=== PATIENT | female | born 1980 | race Two or more races ===

== ENCOUNTER 2022-07-17 09:15 | Emergency (ER) | payer OTHER, SELFPAY ==
[2022-07-17 09:26] VITALS: BP 131/86; PULSE 77; RESP 18; TEMP 36; O2SAT 100; BMI 30.7
--- NOTE | 2022-07-17 09:51 | ED.BACK ---
HPI - Back Pain/Injury General Chief Complaint: Back Pain/Injury Stated Complaint: back pain Time Seen by Provider: 07/17/22 09:39 Source: patient Mode of arrival: ambulatory History of Present Illness HPI Narrative: 42-year-old female with no significant past medical history presenting to the ED complaining of right-sided low back pain radiating down right lower extremity x2 days. Admits woke up with the pain, has had similar symptoms in the past from prior injury years ago. Denies recent injury/trauma or fall, numbness, tingling, weakness, urine incontinence/retention, hematuria MD elicited complaint: back pain Pertinent past history: prior back pain Related Data Previous Rx's Medication Instructions Recorded acetaminophen 500 mg tablet 500 mg PO Q6H PRN fever or pain 07/17/22 (Tylenol Extra Strength) #14 tabs cyclobenzaprine 5 mg tablet 5 mg PO Q8H PRN pain (scale score 07/17/22 7-10) 5 days #14 tabs lidocaine 5 % topical patch 1 patch topical DAILY PRN pain #30 07/17/22 (Lidoderm) ea naproxen 500 mg tablet 500 mg PO BID PRN pain 10 days #20 07/17/22 tabs Allergies Allergy/AdvReac Type Severity Reaction Status Date / Time No Known Allergies Allergy Verified 07/17/22 09:25 Review of Systems Review of Systems: Constitutional: No Fever, No Chills ENT/Mouth: No Ear Pain, No Nasal Congestion, No sore throat, No Rhinorrhea, No Swallowing Difficulty Cardiovascular: No Chest Pain, No SOB Respiratory: No Cough, No Sputum, No Wheezing Gastrointestinal: No Nausea, No Vomiting, No Diarrhea, No Constipation, No Abdominal pain Genitourinary: No Dysuria, No Urinary Frequency, No Hematuria, No Urinary Incontinence/retention, No Urgency, No Flank Pain Musculoskeletal: + joint pain, No Myalgias, No Joint Swelling Skin: No Skin Lesions, No rash Neuro: No Weakness, No Numbness, No Paresthesias Yes all other systems are reviewed and are negative Constitutional: Constitutional: Reports as per [facility] Past Medical History Attestation statement: The following information was validated with the patient. Social History Social History Advance Directives: No Advance Directives Information Provided: No Physical Exam Vital Signs: Vital Signs: Last Vital Signs Temp 96.8 F 07/17/22 09:26 Pulse 77 07/17/22 09:26 Resp 18 07/17/22 09:26 BP 131/86 07/17/22 09:26 Pulse Ox 100 07/17/22 09:26 O2 Del Method 07/17/22 09:26 BMI result Body Mass Index 30.7 Const: General: cooperative, healthy appearing, no acute distress, alert and awake Orientation/consciousness: patient oriented x3 Limitations: no limitations HEENT: Head: Yes normal to inspection and Yes atraumatic Ears: hearing grossly normal bilaterally General nose exam: Normal external nose present Face and sinus: Yes normal facial exam Eyes: General: appearance normal, both eyes and all related structures EOM: EOMs intact bilaterally Neck: Neck: Yes normal visual inspection and Yes no meningeal signs Resp: Effort & Inspection: normal respiratory effort and no respiratory distress Cardio: Rate: regular rate Heart sounds: S1 normal heart sound present and S2 normal heart sound present Peripheral pulses: Peripheral pulses 2+ throughout GI: Inspection: Yes normal to inspection Palpation (GI): Soft to palpation, nontender, no guarding and not rigid : General: Yes no CVA tenderness Back/Spine/Pelvis: Other: No midline thoracic/lumbar spinous tenderness/step-off or deformity. + mild right-sided lower lumbar MSK tenderness to palpation Back: no CVA tenderness Cervical Spine: normal cervical lordosis Thoracic/Lumbar Spine: thoracic and lumbar spine normal to inspection Skin: Rashes: no rashes Wounds: no wounds Neuro: Other: Strength intact throughout. No saddle anesthesia. Sensation intact to light touch. Neurovascular intact distally General: patient oriented x3, gait normal, tone normal, moves all extremities, no meningeal signs and no focal motor deficits Gait exam (Neuro): Normal gait present Extrem: General: Yes normal to inspection Medications Administered Discontinued Medications Generic Name Dose Route Start Last Admin Trade Name Freq PRN Reason Stop Dose Admin Cyclobenzaprine HCl 5 mg 07/17/22 09:50 07/17/22 10:01 Cyclobenzaprine Hcl 5 Mg Tablet PO 07/17/22 09:51 5 mg ONCE ONE Administration Ketorolac Tromethamine 30 mg 07/17/22 09:50 07/17/22 10:00 Ketorolac Tromethamine 30 Mg/Ml Vial IM 07/17/22 09:51 30 mg ONCE ONE Administration Lidocaine 1 patch 07/17/22 09:50 07/17/22 10:01 Lidocaine 4 % Patch Adh..Patch TRANSDERMA 07/17/22 09:51 1 patch ONCE ONE Administration Protocol Medical Decision Making Medical Decision Making [facility] Narrative: 42-year-old female with no significant past medical history presenting to the ED complaining of right-sided low back pain radiating down right lower extremity x2 days. On exam vital signs stable, NAD, nontoxic appearing, no midline spinous tenderness throughout red flag symptoms. Concern for as he pain/strain and sciatica. Low suspicion for cauda quinine, cord compression, fracture, epidural abscess Plan: Pain Control, PCP follow-up Differential Diagnosis Differential Diagnoses: The differential diagnosis associated with the presentation includes as above Discharge Plan Discharge Clinical Impression: Lumbar radiculopathy Patient Disposition: Home, Self-Care Instructions: Lumbar Radiculopathy (ED) Additional Instructions: Your pain is likely musculoskeletal Flexeril is a muscle relaxer, take at night as it makes you drowsy, do not drive, drink alcohol, or operate machinery while taking it Naproxen as an anti-inflammatory / pain medication, take with food Lidoderm patches are numbing patches, apply to painful area In addition take Tylenol at home If symptoms persist or worsen, pain becomes unbearable, you developed urinary retention or incontinence, or weakness return to the ED Prescriptions: New acetaminophen [Tylenol Extra Strength] 500 mg tablet 500 mg PO Q6H PRN (Reason: fever or pain) Qty: 14 0RF lidocaine [Lidoderm] 5 % adhesive patch,medicated 1 patch topical DAILY MDD remove after 12 hours PRN (Reason: pain) Qty: 30 0RF Rx Instructions: leave on most painful area for up to 12 hrs naproxen 500 mg tablet 500 mg PO BID PRN (Reason: pain) 10 Days Qty: 20 0RF cyclobenzaprine 5 mg tablet 5 mg PO Q8H PRN (Reason: pain (scale score 7-10)) 5 Days Qty: 14 0RF Referrals: Opal Warren [Primary Care Provider] - 3 days Interventions: ED Discharge Assessment Last Done: 07/17/22 10:09 Discharge Date/Time: 07/17/22 10:10
[2022-07-17] MEDS: Ketorolac Tromethamine 30 MG/ML VIAL IM (10:00)
[2022-07-17] MEDS: Lidocaine 4 % Patch ADH..PATCH 1 PATCH TRANSDERMA (10:01)
[2022-07-17] MEDS: Cyclobenzaprine HCl 5 MG TABLET PO (10:01)
== END 2022-07-17 10:10 | disposition home or self-care (01) ==
PROVIDERS: Emergency Provider Emergency Medicine Emergency Medical Services; PCP Internal Medicine
DX: M54.16 Radiculopathy, lumbar region (principal)
CPT/HCPCS: 96372; 99283; 99284; J1885

== ENCOUNTER 2022-12-12 11:01 | Emergency (ER) | payer OTHER, SELFPAY ==
--- NOTE | ~2022-12-12 | XR_ITS ---
EXAMINATION: THORACIC SPINE, LUMBAR SPINE, RIGHT SHOULDER, SACRUM AND COCCYX. CLINICAL INFORMATION: Low back pain following fall COMPARISON: None. TECHNIQUE: Three-view lumbar spine. Three-view thoracic spine. Five-view sacrum and coccyx. 3 view right shoulder. FINDINGS: Right shoulder: There is no evidence of acute fracture or dislocation of the right shoulder. Glenohumeral joint appears unremarkable. There is no widening of the cortical clavicular space. There is mild spurring about the acromioclavicular space. Thoracic spine: There is mild scoliosis of the thoracic spine convex left superiorly and convex right inferiorly. No acute fracture is appreciated. Disc spaces are maintained. Pedicles intact. No abnormal paraspinal line bulge is identified. Lumbar spine: There are 5 nonrib bearing lumbar vertebra. No acute fracture, spondylolisthesis, or spondylolysis is identified. Pedicles appear intact. There is degenerative disc disease present with some disc space narrowing and minor spurring at the L3-L4 and L5-S1 levels. Sacrum and coccyx. No diastases of the pelvis is identified. The sacroiliac joints and pubic symphysis appear unremarkable. No acute sacral bone fracture is appreciated. No coccyx fracture is noted. XR/XR lumbar spine 2-3V IMPRESSION: No evidence of acute fracture involving the right shoulder, thoracic spine, lumbar spine, or sacrum and coccyx. Mild thoracic spine scoliosis. Lumbar spondylosis at the L3-L4 and L5-S1 levels.
--- NOTE | ~2022-12-12 | XR_ITS ---
EXAMINATION: THORACIC SPINE, LUMBAR SPINE, RIGHT SHOULDER, SACRUM AND COCCYX. CLINICAL INFORMATION: Low back pain following fall COMPARISON: None. TECHNIQUE: Three-view lumbar spine. Three-view thoracic spine. Five-view sacrum and coccyx. 3 view right shoulder. FINDINGS: Right shoulder: There is no evidence of acute fracture or dislocation of the right shoulder. Glenohumeral joint appears unremarkable. There is no widening of the cortical clavicular space. There is mild spurring about the acromioclavicular space. Thoracic spine: There is mild scoliosis of the thoracic spine convex left superiorly and convex right inferiorly. No acute fracture is appreciated. Disc spaces are maintained. Pedicles intact. No abnormal paraspinal line bulge is identified. Lumbar spine: There are 5 nonrib bearing lumbar vertebra. No acute fracture, spondylolisthesis, or spondylolysis is identified. Pedicles appear intact. There is degenerative disc disease present with some disc space narrowing and minor spurring at the L3-L4 and L5-S1 levels. Sacrum and coccyx. No diastases of the pelvis is identified. The sacroiliac joints and pubic symphysis appear unremarkable. No acute sacral bone fracture is appreciated. No coccyx fracture is noted. XR/XR shoulder RT min 2V IMPRESSION: No evidence of acute fracture involving the right shoulder, thoracic spine, lumbar spine, or sacrum and coccyx. Mild thoracic spine scoliosis. Lumbar spondylosis at the L3-L4 and L5-S1 levels.
--- NOTE | ~2022-12-12 | XR_ITS ---
EXAMINATION: THORACIC SPINE, LUMBAR SPINE, RIGHT SHOULDER, SACRUM AND COCCYX. CLINICAL INFORMATION: Low back pain following fall COMPARISON: None. TECHNIQUE: Three-view lumbar spine. Three-view thoracic spine. Five-view sacrum and coccyx. 3 view right shoulder. FINDINGS: Right shoulder: There is no evidence of acute fracture or dislocation of the right shoulder. Glenohumeral joint appears unremarkable. There is no widening of the cortical clavicular space. There is mild spurring about the acromioclavicular space. Thoracic spine: There is mild scoliosis of the thoracic spine convex left superiorly and convex right inferiorly. No acute fracture is appreciated. Disc spaces are maintained. Pedicles intact. No abnormal paraspinal line bulge is identified. Lumbar spine: There are 5 nonrib bearing lumbar vertebra. No acute fracture, spondylolisthesis, or spondylolysis is identified. Pedicles appear intact. There is degenerative disc disease present with some disc space narrowing and minor spurring at the L3-L4 and L5-S1 levels. Sacrum and coccyx. No diastases of the pelvis is identified. The sacroiliac joints and pubic symphysis appear unremarkable. No acute sacral bone fracture is appreciated. No coccyx fracture is noted. XR/XR thoracic spine 3V IMPRESSION: No evidence of acute fracture involving the right shoulder, thoracic spine, lumbar spine, or sacrum and coccyx. Mild thoracic spine scoliosis. Lumbar spondylosis at the L3-L4 and L5-S1 levels.
--- NOTE | ~2022-12-12 | XR_ITS ---
EXAMINATION: THORACIC SPINE, LUMBAR SPINE, RIGHT SHOULDER, SACRUM AND COCCYX. CLINICAL INFORMATION: Low back pain following fall COMPARISON: None. TECHNIQUE: Three-view lumbar spine. Three-view thoracic spine. Five-view sacrum and coccyx. 3 view right shoulder. FINDINGS: Right shoulder: There is no evidence of acute fracture or dislocation of the right shoulder. Glenohumeral joint appears unremarkable. There is no widening of the cortical clavicular space. There is mild spurring about the acromioclavicular space. Thoracic spine: There is mild scoliosis of the thoracic spine convex left superiorly and convex right inferiorly. No acute fracture is appreciated. Disc spaces are maintained. Pedicles intact. No abnormal paraspinal line bulge is identified. Lumbar spine: There are 5 nonrib bearing lumbar vertebra. No acute fracture, spondylolisthesis, or spondylolysis is identified. Pedicles appear intact. There is degenerative disc disease present with some disc space narrowing and minor spurring at the L3-L4 and L5-S1 levels. Sacrum and coccyx. No diastases of the pelvis is identified. The sacroiliac joints and pubic symphysis appear unremarkable. No acute sacral bone fracture is appreciated. No coccyx fracture is noted. XR/XR sacrum coccyx min 2V IMPRESSION: No evidence of acute fracture involving the right shoulder, thoracic spine, lumbar spine, or sacrum and coccyx. Mild thoracic spine scoliosis. Lumbar spondylosis at the L3-L4 and L5-S1 levels.
[2022-12-12 11:13] VITALS: BP 114/69; PULSE 93; RESP 20; TEMP 36.4; O2SAT 100; BMI 29.3
--- NOTE | 2022-12-12 11:17 | ED_ITS ---
HPI - General Adult General Chief complaint: Back Pain/Injury Stated complaint: Fall 6/ back pain Time Seen by Provider: 12/12/22 11:31 Source: patient, RN notes reviewed and old records reviewed Mode of arrival: ambulatory History of Present Illness HPI narrative: 42-year-old female with no significant past medical history presenting to the ED complaining of right shoulder and low back pain s/p fall down about 10 stairs 2 days ago. Denies symptoms prior to fall, head trauma, or LOC. Denies taking anticoagulation. Denies urinary incontinence/retention, numbness/tingling, weakness. Has been taking Tylenol and Motrin without relief Onset (ago): day(s) Related Data Previous Rx's Medication Instructions Recorded acetaminophen 500 mg tablet 500 mg PO Q6H PRN fever or pain 07/17/22 (Tylenol Extra Strength) #14 tabs cyclobenzaprine 5 mg tablet 5 mg PO Q8H PRN pain (scale score 07/17/22 7-10) 5 days #14 tabs lidocaine 5 % topical patch 1 patch topical DAILY PRN pain #30 07/17/22 (Lidoderm) ea naproxen 500 mg tablet 500 mg PO BID PRN pain 10 days #20 07/17/22 tabs acetaminophen 500 mg tablet 500 mg PO Q6H PRN fever or pain 12/12/22 (Tylenol Extra Strength) #14 tabs cyclobenzaprine 5 mg tablet 5 mg PO Q8H PRN pain (scale score 12/12/22 7-10) 5 days #14 tabs lidocaine 5 % topical patch 1 patch topical DAILY PRN pain #30 12/12/22 (Lidoderm) ea naproxen 500 mg tablet 500 mg PO BID PRN pain 10 days #20 12/12/22 tabs tramadol 50 mg tablet 50 mg PO Q8H PRN pain, severe #9 12/12/22 tabs Allergies Allergy/AdvReac Type Severity Reaction Status Date / Time No Known Allergies Allergy Verified 07/17/22 09:25 Review of Systems Review of Systems: Constitutional: No Fever, No Chills ENT/Mouth: No Ear Pain, No Nasal Congestion, No sore throat, No Rhinorrhea, No Swallowing Difficulty Cardiovascular: No Chest Pain, No SOB Respiratory: No Cough, No Sputum Gastrointestinal: No Nausea, No Vomiting, No Diarrhea, No Constipation, No Abdominal pain Genitourinary: No Dysuria, No Urinary Frequency, No Hematuria, No Urinary Incontinence/retention, No Urgency, No Flank Pain Musculoskeletal: +joint pain, + Myalgias, No Joint Swelling Skin: No Skin Lesions, No rash Neuro: No Weakness, No Numbness, No Paresthesias Yes all other systems are reviewed and are negative Constitutional: Constitutional: Reports as per HPI Neurologic: Denies Sensory deficit (Neuro) COUNT INCLUDES THE [facility] Past Medical History Attestation statement: The following information was validated with the patient. Source: old records reviewed Social History Social History Advance Directives: No Advance Directives Information Provided: Yes Physical Exam ED Vital Signs: Vital Signs - 24 hr 12/12/22 11:13 Temperature 97.5 F Pulse Rate 93 Respiratory Rate 20 Blood Pressure 114/69 Pulse Oximetry 100 Oxygen Delivery Method Room Air BMI result Body Mass Index 29.3 Const General: cooperative, healthy appearing and no acute distress Orientation/consciousness: patient oriented x3 Limitations: no limitations HENMT Head: Yes normal to inspection and Yes atraumatic Ears: hearing grossly normal bilaterally General nose exam: Normal external nose present Face and sinus: Yes normal facial exam Eyes General: appearance normal, both eyes and all related structures EOM: EOMs intact bilaterally Neck Neck: Yes normal visual inspection and Yes no meningeal signs Resp Effort & Inspection: normal respiratory effort and no respiratory distress Cardio Rate: regular rate Heart sounds: S1 normal heart sound present and S2 normal heart sound present GI Inspection: Yes normal to inspection Palpation (GI): Soft to palpation, nontender, no guarding and not rigid General: Yes no CVA tenderness Back/Spine/Pelvis Other: No midline cervical/thoracic/lumbar spinous tenderness/step-off or deformity. + bilateral lumbar MSK tenderness to palpation. Back: no CVA tenderness Skin Rashes: no rashes Wounds: no wounds Neuro Other: Strength intact throughout. No saddle anesthesia. Sensation intact to light touch. Neurovascular intact distally General: patient oriented x3, gait normal, tone normal, moves all extremities, no meningeal signs and no focal motor deficits Gait exam (Neuro): Normal gait present Motor exam (neuro): 5/5 motor strength present throughout Sensory Exam: No Sensory deficit (Neuro) Extrem Other: Right shoulder with mild tenderness. No appreciable deformity. Limited a bduction secondary to pain. Neurovascular intact distally General: Yes normal to inspection Course Course Course Narrative: RME: fall unto back on tuesday and right shoulder. no head strike or LOC. Xrays of back and shoulder ordered. XR thoracic spine 3V/XR lumbar spine 2-3V/XR sacrum coccyx min 2V/XR shoulder RT min 2V IMPRESSION: No evidence of acute fracture involving the right shoulder, thoracic spine, lumbar spine, or sacrum and coccyx. ? Mild thoracic spine scoliosis. ? Lumbar spondylosis at the L3-L4 and L5-S1 levels. > patient reports mild symptomatic improvement after medications given in the ED. Results discussed with patient including worrisome signs and symptoms and strict return precautions, and when to return to the emergency department. They verbalized understanding and feel safe for discharge at this time. Medications Administered Discontinued Medications Generic Name Dose Route Start Last Admin Trade Name Freq PRN Reason Stop Dose Admin Cyclobenzaprine HCl 10 mg 12/12/22 11:38 12/12/22 12:04 Cyclobenzaprine Hcl 10 Mg Tablet PO 12/12/22 11:39 10 mg ONCE ONE Administration Ketorolac Tromethamine 30 mg 12/12/22 11:38 12/12/22 12:03 Ketorolac Tromethamine 30 Mg/Ml Vial IM 12/12/22 11:39 30 mg ONCE ONE Administration Lidocaine 1 patch 12/12/22 11:39 12/12/22 12:03 Lidocaine 4 % Patch Adh..Patch TRANSDERMA 12/12/22 11:40 1 patch ONCE ONE Administration Protocol Tramadol HCl 50 mg 12/12/22 12:46 12/12/22 12:50 Tramadol Hcl 50 Mg Tablet PO 12/12/22 12:47 50 mg ONCE ONE Administration Medical Decision Making Medical Decision Making [facility] Narrative: 42-year-old female with no significant past medical history presenting to the ED complaining of right shoulder and low back pain s/p fall down about 10 stairs 2 days ago. On exam vital signs stable, NAD, appears uncomfortable, no midline spinous tenderness throughout or red flag symptoms. MSK lumbar tenderness reproducible and right shoulder tenderness. No saddle anesthesia, ambulating with steady gait. Concern for MSK pain/strain and spasming. Rule out fracture. Low suspicion for cauda equina, cord compression, epidural abscess, or shoulder dislocation Plan: X-rays, pain control Please refer to course for remaining clinical decision making, interpretation of labs/imaging results, and discussions with consultants and/or family members. Differential Diagnosis Differential Diagnoses: The differential diagnosis associated with the presentation includes As above Admission/Observation Consideration of admission/observation: Escalation of care including admission/observation considered Lab Data MDM Lab Attestation statement: I reviewed the patient's lab results. Radiology Impression Discussion of test interpretation with radiology: I have reviewed the radiologist's reading. External Record Review External record reviewed: Inpatient record, Office record, Outpatient record, Prior outpatient labs, Prior outpatient radiology, Primary care record and Outside ED record Tests considered The following testing was considered but not selected: As above Discharge Plan Discharge Clinical Impression: Strain of lumbar region, Acute shoulder pain Patient Disposition: Home, Self-Care Instructions: Acute Low Back Pain (ED), Shoulder Pain (ED) Additional Instructions: Your pain is likely musculoskeletal Flexeril is a muscle relaxer, take at night as it makes you drowsy, do not drive, drink alcohol, or operate machinery while taking it Naproxen as an anti-inflammatory / pain medication, take with food Lidoderm patches are numbing patches, apply to painful area Tramadol as an opiate pain medication, take only when pain is severe for the next 3 days In addition take Tylenol at home If symptoms persist or worsen, pain becomes unbearable, you developed urinary retention or incontinence, or weakness return to the ED Es probable que lama dolor sea musculoesquel?sylvia Flexeril es un relajante muscular, t?cody por la noche ya que te adormece, no conduzcas, bebas alcohol ni operes maquinaria mientras lo hever. Naproxeno collette medicamento antiinflamatorio/analg?sico, t?wisdom con alimentos Los parches de Lidoderm son parches anest?sicos, se aplican en el ?von dolorida Tramadol collette analg?sico opi?shower doors and panels fabricator, t?wisdom solo cuando el dolor sea intenso garrick los pr?ximos 3 d?as Adem?s helio Tylenol en casa Si los s?ntomas persisten o empeoran, el dolor se vuelve insoportable, desarroll? retenci?n urinaria o incontinencia, o debilidad, regrese al servicio de urgencias. Prescriptions: New tramadol 50 mg tablet 50 mg PO Q8H PRN (Reason: pain, severe) Qty: 9 0RF acetaminophen [Tylenol Extra Strength] 500 mg tablet 500 mg PO Q6H PRN (Reason: fever or pain) Qty: 14 0RF lidocaine [Lidoderm] 5 % adhesive patch,medicated 1 patch topical DAILY MDD remove after 12 hours PRN (Reason: pain) Qty: 30 0RF Rx Instructions: leave on most painful area for up to 12 hrs naproxen 500 mg tablet 500 mg PO BID PRN (Reason: pain) 10 Days Qty: 20 0RF cyclobenzaprine 5 mg tablet 5 mg PO Q8H PRN (Reason: pain (scale score 7-10)) 5 Days Qty: 14 0RF No Action acetaminophen [Tylenol Extra Strength] 500 mg tablet 500 mg PO Q6H PRN (Reason: fever or pain) Qty: 14 0RF lidocaine [Lidoderm] 5 % adhesive patch,medicated 1 patch topical DAILY MDD remove after 12 hours PRN (Reason: pain) Qty: 30 0RF Rx Instructions: leave on most painful area for up to 12 hrs naproxen 500 mg tablet 500 mg PO BID PRN (Reason: pain) 10 Days Qty: 20 0RF cyclobenzaprine 5 mg tablet 5 mg PO Q8H PRN (Reason: pain (scale score 7-10)) 5 Days Qty: 14 0RF Referrals: Opal Warren [Primary Care Provider] - 5 days Stand Alone Forms: Work/School Release Interventions: ED Discharge Assessment Last Done: 12/12/22 13:56 Discharge Date/Time: 12/12/22 13:59 Print Language: Cuban
[2022-12-12] MEDS: Lidocaine 4 % Patch ADH..PATCH 1 PATCH TRANSDERMA (12:03)
[2022-12-12] MEDS: Ketorolac Tromethamine 30 MG/ML VIAL IM (12:03)
[2022-12-12] MEDS: Cyclobenzaprine HCl 10 MG TABLET PO (12:04)
--- NOTE | 2022-12-12 12:10 | PC.NURSE ---
patient medicated per SEP. warm blanket given.
[2022-12-12] MEDS: traMADoL HCL 50 MG TABLET PO (12:50)
--- NOTE | 2022-12-12 12:51 | PC.NURSE ---
patient medicated per SEP. Patient in no apparent distress. reports pain 10/
== END 2022-12-12 13:59 | disposition home or self-care (01) ==
PROVIDERS: Emergency Provider Internal Medicine; PCP Internal Medicine
DX: S39.012A Strain of muscle, fascia and tendon of lower back, initial encounter (principal); M25.511 Pain in right shoulder; M54.6 Pain in thoracic spine; W10.9XXA Fall (on) (from) unspecified stairs and steps, initial encounter; Y93.9 Activity, unspecified; Y92.9 Unspecified place or not applicable; Y99.9 Unspecified external cause status; Z79.899 Other long term (current) drug therapy
CPT/HCPCS: 72072; 72100; 72220; 73030; 96372; 99283; 99284; J1885

== ENCOUNTER 2022-12-25 20:36 | Emergency (ER) | payer OTHER, SELFPAY ==
--- NOTE | ~2022-12-25 | XR_ITS ---
EXAMINATION: XR THORACIC SPINE 2V, XR LUMBAR SPINE 2-3V CLINICAL INFORMATION: Reason for Exam pain, fall COMPARISON: None. TECHNIQUE: 3 views of the thoracic spine and 3 views of the lumbar spine FINDINGS: No acute fracture or traumatic malalignment. Vertebral body heights maintained. Mild S-shaped thoracic scoliosis, apex left at T5, apex right at T9. Small endplate ossified is throughout the thoracic inlet or spine. Moderate loss of disc space height at L3-L4 and L5-S1. Paraspinal soft tissues unremarkable. Moderate constipation. XR/XR thoracic spine 2V IMPRESSION: * No acute fracture or traumatic malalignment. * Thoracolumbar spondylosis and scoliosis as described.
--- NOTE | ~2022-12-25 | XR_ITS ---
EXAMINATION: XR THORACIC SPINE 2V, XR LUMBAR SPINE 2-3V CLINICAL INFORMATION: Reason for Exam pain, fall COMPARISON: None. TECHNIQUE: 3 views of the thoracic spine and 3 views of the lumbar spine FINDINGS: No acute fracture or traumatic malalignment. Vertebral body heights maintained. Mild S-shaped thoracic scoliosis, apex left at T5, apex right at T9. Small endplate ossified is throughout the thoracic inlet or spine. Moderate loss of disc space height at L3-L4 and L5-S1. Paraspinal soft tissues unremarkable. Moderate constipation. XR/XR lumbar spine 2-3V IMPRESSION: * No acute fracture or traumatic malalignment. * Thoracolumbar spondylosis and scoliosis as described.
[2022-12-25 20:37] VITALS: BP 96/54; PULSE 90; RESP 18; TEMP 36.6; O2SAT 100; BMI 24.4
--- NOTE | 2022-12-25 23:27 | ED_ITS ---
HPI - Back Pain/Injury General Chief Complaint: Back Pain/Injury Stated Complaint: back pain Time Seen by Provider: 12/25/22 23:10 Source: patient Mode of arrival: ambulatory Limitations: no limitations History of Present Illness HPI Narrative: 42-year-old female who presents emergency department for evaluation of lower back pain. The patient was seen in the emergency department on 12/12/2022 after having a fall down stairs. At that time she had x-rays of her lumbar sacral spine which revealed no acute fractures. She was discharged home with tramadol, naproxen, Flexeril and lidocaine patches. Patient states that her pain completely resolved. She did not do anything strenuous yesterday or have any new injuries. She woke up this morning with lower back pain right greater than left. She describes the pain is a constant, burning sensation which is worse with movement. The pain does radiate down both legs to her knees. She denies any numbness or weakness of her lower extremities. She denied loss of bowel or bladder control. She took tramadol Flexeril with no relief for pain. She denied systemic symptoms such as fever, chills, weakness or fatigue. Related Data Previous Rx's Medication Instructions Recorded acetaminophen 500 mg tablet 500 mg PO Q6H PRN fever or pain 07/17/22 (Tylenol Extra Strength) #14 tabs cyclobenzaprine 5 mg tablet 5 mg PO Q8H PRN pain (scale score 07/17/22 7-10) 5 days #14 tabs lidocaine 5 % topical patch 1 patch topical DAILY PRN pain #30 07/17/22 (Lidoderm) ea naproxen 500 mg tablet 500 mg PO BID PRN pain 10 days #20 07/17/22 tabs acetaminophen 500 mg tablet 500 mg PO Q6H PRN fever or pain 12/12/22 (Tylenol Extra Strength) #14 tabs cyclobenzaprine 5 mg tablet 5 mg PO Q8H PRN pain (scale score 12/12/22 7-10) 5 days #14 tabs lidocaine 5 % topical patch 1 patch topical DAILY PRN pain #30 12/12/22 (Lidoderm) ea naproxen 500 mg tablet 500 mg PO BID PRN pain 10 days #20 12/12/22 tabs tramadol 50 mg tablet 50 mg PO Q8H PRN pain, severe #9 12/12/22 tabs cyclobenzaprine 10 mg tablet 10 mg PO TID PRN muscle pain or 12/25/22 spasm #20 tabs oxycodone 5 mg tablet 5 mg PO Q4H PRN pain #14 tabs 12/25/22 prednisone 20 mg tablet 60 mg PO DAILY 5 days #15 tabs 12/25/22 Allergies Allergy/AdvReac Type Severity Reaction Status Date / Time No Known Allergies Allergy Verified 07/17/22 09:25 Review of Systems Review of Systems: Yes all other systems are reviewed and are negative [facility] Past Medical History [facility] Narrative: Past medical history: Back pain. Social history: She denies tobacco, alcohol and drug use. Social History Social History Smoked in Last 30 Days: No Advance Directives: No Advance Directives Information Provided: No Physical Exam Vital Signs: Vital Signs: Last Vital Signs Temp 98 F 12/25/22 20:37 Pulse 90 12/25/22 20:37 Resp 18 12/25/22 20:37 BP 96/54 L 12/25/22 20:37 Pulse Ox 100 12/25/22 20:37 O2 Del Method Room Air 12/25/22 20:37 BMI result Body Mass Index 24.4 Const: General: cooperative and no acute distress Orientation/consciousness: oriented to person and oriented to place Limitations: no limitations HEENT: Head: Yes normal to inspection, Yes normocephalic and Yes atraumatic Ears: external ears normal General nose exam: Normal external nose present Face and sinus: Yes normal facial exam Mouth: Normal oral and palatal mucosa present Throat: Yes posterior oropharynx normal Eyes: General: appearance normal, both eyes and all related structures Pupils: Equal, round and reactive pupils present Neck: Neck: Yes normal visual inspection, Yes no lymphadenopathy, Yes trachea midline and Yes supple Chest: Chest palpation & inspection: normal inspection of the chest and normal palpation of entire chest wall Resp: Effort & Inspection: normal respiratory effort and able to speak in complete sentences Auscultation: clear to auscultation bilaterally Cardio: Rate: regular rate Rhythm: regular rhythm Heart sounds: S1 nor mal heart sound present, S2 normal heart sound present and no murmurs GI: Inspection: Yes normal to inspection Palpation (GI): Soft to palpation, nontender and no guarding Auscultation: normal bowel sounds Back/Spine/Pelvis: Other: Patient has no point tenderness with palpation over her vertebrae. She does have tenderness palpation of the paraspinal muscles in the lumbar sacral area with spasm of these muscles. She has increased pain with raises bilaterally. Her strength in her lower extremities is normal. Light touch is normal as well. Skin: General skin exam: no rashes or lesions noted Neuro: General: oriented to person and oriented to place Cranial nerves: Yes CN's II-XII intact bilaterally and Yes Equal, round and reactive pupils present Cognition (Neuro): normal cognition Motor exam (neuro): 5/5 motor strength present throughout Extrem: General: Yes normal to inspection Psych: Appearance: grossly normal Speech and movement: Normal speech and movement present Affect: normal affect Attitude: cooperative Thought process: Normal thought process present Thought content: Normal thought content present Medical Decision Making Medical Decision Making MDM Narrative: 42-year-old female with a history of chronic lower back who presents emergency department for evaluation of back pain with bilateral lower extremity radiculopathy. She was seen in the emergency department on 12/12/2022 after a fall and back injury, you she was treated with tramadol, Flexeril and naproxen with improvement of her pain. She had no repeat injury and this morning she woke up with bilateral lower back pain with pain radiating down both legs to her knees. Examination did reveal lumbar sacral paraspinal muscle pain and spasm otherwise her exam was unremarkable. The patient had no point tenderness with palpation over her vertebrae. Provider at triage ordered thoracic and lumbar spine x-rays and on my interpreted of these x-rays there is no acute fracture. The patient was given oxycodone 10 mg orally and prednisone 60 mg orally here in the emergency department. She was advised to stop her naproxen and tramadol and she was prescribed oxycodone, prednisone and refill of her cyclobenzaprine. She was given printed and verbal instructions and discharged home. Differential Diagnosis Differential diagnosis includes but is not limited to acute vertebral fracture, degenerative disc disease, degenerative arthritis, spinal stenosis, spinal abscess, lumbar sprain, lumbar radiculopathy Independent Interpretation I performed an independent interpretation of an: Plain X-Ray Interpretation: My independent interpretation the patient's thoracic and lumbar spine x-rays is no acute fracture seen Radiology Impression Discussion of test interpretation with radiology: I have reviewed the radiologist's reading. Independent Historian Clinical information obtained from an independent historian. History obtained from or confirmed by: Friend External Record Review External record reviewed: Other ([place] prescription monitoring program) Discharge Plan Discharge Clinical Impression: Strain of lumbar region, Lumbar radiculopathy Patient Disposition: Home, Self-Care Instructions: Lumbar Radiculopathy (ED) Additional Instructions: Your x-rays revealed no broken bones Your exam did reveal tenderness of the muscles of your lower back Increased inflammation in the a lower back muscles which is causing inflammation around the nerves coming out of your back and this explains the pain that is going down your legs. Stop taking naproxen. Stop taking tramadol Take prednisone 20 mg pills, 3 pills once a day for 5 days. This is an anti- inflammatory medication While you are taking prednisone, do not take any NSAIDs (Motrin, Advil, ibuprofen, Aleve, naproxen). Take Tylenol (acetaminophen) 500 mg pills, 2 pills every 6 hours as needed for pain. For pain not relieved by redness or Tylenol take oxycodone 5 mg pills, 1 pill every 4 hours as needed for pain. Do not drive or work while taking this medication since they can cause sleepiness. Oxycodone is a narcotic medication that can be addicting. If you are concerned about addiction you can ask the pharmacist for less pills or do not get this prescription filled. Take Flexeril (cyclobenzaprine) 10 mg pills, 1 pill every 6-8 hours as needed for pain or spasm. This medication will make you sleepy. Do not drive or work while taking this medication. Follow-up with your doctor in 2 days. Please return to the emergency department if your symptoms get worse or if you develop any symptoms that are concerning to you. Prescriptions: New cyclobenzaprine 10 mg tablet 10 mg PO TID PRN (Reason: muscle pain or spasm) Qty: 20 0RF prednisone 20 mg tablet 60 mg PO DAILY 5 Days Qty: 15 0RF oxycodone 5 mg tablet 5 mg PO Q4H PRN (Reason: pain) Qty: 14 0RF Rx Instructions: Patient may request partial fill; Partial Fill upon patient request. No Action acetaminophen [Tylenol Extra Strength] 500 mg tablet 500 mg PO Q6H PRN (Reason: fever or pain) Qty: 14 0RF lidocaine [Lidoderm] 5 % adhesive patch,medicated 1 patch topical DAILY MDD remove after 12 hours PRN (Reason: pain) Qty: 30 0RF Rx Instructions: leave on most painful area for up to 12 hrs naproxen 500 mg tablet 500 mg PO BID PRN (Reason: pain) 10 Days Qty: 20 0RF cyclobenzaprine 5 mg tablet 5 mg PO Q8H PRN (Reason: pain (scale score 7-10)) 5 Days Qty: 14 0RF tramadol 50 mg tablet 50 mg PO Q8H PRN (Reason: pain, severe) Qty: 9 0RF acetaminophen [Tylenol Extra Strength] 500 mg tablet 500 mg PO Q6H PRN (Reason: fever or pain) Qty: 14 0RF lidocaine [Lidoderm] 5 % adhesive patch,medicated 1 patch topical DAILY MDD remove after 12 hours PRN (Reason: pain) Qty: 30 0RF Rx Instructions: leave on most painful area for up to 12 hrs naproxen 500 mg tablet 500 mg PO BID PRN (Reason: pain) 10 Days Qty: 20 0RF cyclobenzaprine 5 mg tablet 5 mg PO Q8H PRN (Reason: pain (scale score 7-10)) 5 Days Qty: 14 0RF
[2022-12-25 23:36] VITALS: BP 98/69; PULSE 77; RESP 18; TEMP 36.3; O2SAT 99
[2022-12-25] MEDS: predniSONE 20 MG TABLET 60 MG PO (23:41)
[2022-12-25] MEDS: oxyCODONE HCl Immed Release 5 MG TABLET 10 MG PO (23:42)
== END 2022-12-25 23:49 | disposition home or self-care (01) ==
PROVIDERS: Emergency Provider Emergency Medicine Emergency Medical Services; PCP Internal Medicine
DX: S39.012A Strain of muscle, fascia and tendon of lower back, initial encounter (principal); W10.8XXA Fall (on) (from) other stairs and steps, initial encounter; M54.16 Radiculopathy, lumbar region; Y93.89 Activity, other specified; Y92.9 Unspecified place or not applicable; Y99.9 Unspecified external cause status
CPT/HCPCS: 72070; 72100; 99283; 99284

== ENCOUNTER 2023-11-24 11:38 | Emergency (ER) | payer OTHER, SELFPAY ==
--- NOTE | ~2023-11-24 | XR_ITS ---
EXAMINATION: XR CHEST CLINICAL INFORMATION: Chest pain. COMPARISON: None available. TECHNIQUE: 2 views of the chest were obtained. FINDINGS: The cardiomediastinal silhouette is within normal limits. No vascular congestion or pulmonary edema. Right perihilar opacities consistent with pneumonia. No effusion or pneumothorax. XR/XR chest 2V IMPRESSION: Right perihilar airspace disease consistent with pneumonia. Recommend follow-up chest x-ray in 4-6 weeks to ensure resolution.
--- NOTE | 2023-11-24 11:41 | ECG_ITS ---
Test Reason : chest pain Blood Pressure : / mmHG Vent. Rate : 083 BPM Atrial Rate : 083 BPM P-R Int : 158 ms QRS Dur : 086 ms QT Int : 392 ms P-R-T Axes : 064 -38 039 degrees QTc Int : 460 ms Normal sinus rhythm Left axis deviation Abnormal ECG No previous ECGs available Referred By: Ludy Ortega Electronically Signed By:VARSHA DEGROOT MD
--- NOTE | 2023-11-24 12:00 | ED.GENADULT ---
HPI - General Adult General Chief complaint: Chest Pain Stated complaint: Chest pain Time Seen by Provider: 11/24/23 15:08 Source: patient Mode of arrival: ambulatory History of Present Illness HPI narrative: 43-year-old female with history of fibromyalgia comes in for 1 week of shortness of breath, chest pain, cough also reports headache and fatigue with body aches and weakness. She otherwise denies any GI or symptoms. Related Data Previous Rx's ?Medication ?Instructions ?Recorded acetaminophen 500 mg tablet 500 mg PO Q6H PRN fever or pain 07/17/22 (Tylenol Extra Strength) #14 tabs cyclobenzaprine 5 mg tablet 5 mg PO Q8H PRN pain (scale score 07/17/22 7-10) 5 days #14 tabs lidocaine 5 % topical patch 1 patch topical DAILY PRN pain #30 07/17/22 (Lidoderm) ea naproxen 500 mg tablet 500 mg PO BID PRN pain 10 days #20 07/17/22 tabs acetaminophen 500 mg tablet 500 mg PO Q6H PRN fever or pain 12/12/22 (Tylenol Extra Strength) #14 tabs cyclobenzaprine 5 mg tablet 5 mg PO Q8H PRN pain (scale score 12/12/22 7-10) 5 days #14 tabs lidocaine 5 % topical patch 1 patch topical DAILY PRN pain #30 12/12/22 (Lidoderm) ea naproxen 500 mg tablet 500 mg PO BID PRN pain 10 days #20 12/12/22 tabs tramadol 50 mg tablet 50 mg PO Q8H PRN pain, severe #9 12/12/22 tabs cyclobenzaprine 10 mg tablet 10 mg PO TID PRN muscle pain or 12/25/22 spasm #20 tabs oxycodone 5 mg tablet 5 mg PO Q4H PRN pain #14 tabs 12/25/22 prednisone 20 mg tablet 60 mg (3 x 20 mg) PO DAILY 5 days 12/25/22 #15 tabs amoxicillin 875 mg-potassium 1 tab PO BID 5 days #10 tabs 11/24/23 clavulanate 125 mg tablet Allergies Allergy/AdvReac Type Severity Reaction Status Date / Time No Known Allergies Allergy Verified 11/24/23 12:02 Review of Systems Review of Systems: Pertinent positives and negatives as stated in HPI [facility] Past Medical History Source: nursing notes reviewed Social History Social History Advance Directives: No Physical Exam ED Vital Signs: Vital Signs - 24 hr 11/24/23 12:01 Temperature 98.7 F Pulse Rate 83 Respiratory Rate 16 Blood Pressure 113/70 Pulse Oximetry 99 Oxygen Delivery Method Room Air BMI result Body Mass Index 34.2 VITAL SIGNS: Reviewed. GENERAL: Well developed, well nourished, in no acute distress. HEAD: Normocephalic/atraumatic EYES: PERRLA, EOMI EARS: Ext canals without abnormality, TMs non-bulging and non-erythematous NOSE: Nares patent bilateral OROPHARYNX: no oral lesions noted, posterior pharynx clear and non-erythematous without noted tonsillar enlargement/erythema/exudates NECK: Supple, no adenopathy LUNGS: Normal breath sounds. No adventitious sounds or accessory muscle use. SpO2<99> CARDIOVASCULAR: Regular rate and rhythm without noted murmurs ABDOMEN: Soft, non-tender, non-distended with bowel sounds. MUSCULOSKELETAL: No tenderness, deformities, or effusions noted on gross inspection. EXTREMITIES: No cyanosis, clubbing or edema. SKIN: Inspection of the skin reveals no rashes NEUROLOGIC: Alert and oriented x 4. Strength and sensation to light touch were grossly intact x 4. Course Course Course Narrative: RME performed by Ludy Ortega PA-C. Patient is a 43 year old assigned female at presenting to the emergency department with chest pain and feeling tired. Patient states lately she has been having chest pain and feeling more run down. Detailed physical exam and review of systems are deferred to the coffee host. EKG, labs, imaging, and swabs ordered. Patient placed back in the waiting room pending room availability and results. Medical Decision Making Medical Decision Making MDM Narrative: 43-year-old female with history and clinical presentation, DDX: Viral illness, pneumonia I reviewed all investigations and hematologic indices are negative for leukocytosis/anemia/thrombocytopenia. INR is within normal limits. Chemistry indices negative for TANIA/electrolyte/liver enzyme derangements. High sensitivity troponin is undetectable. There are no abnormal findings on EKG. Viral testing is negative for influenza/COVID-19/RSV. Chest x-ray significant for infiltrates on the right suspicious for pneumonia and patient received combination analgesics along with initial antibiotics here in the emergency room. All findings were discussed with the patient at bedside and she understands that she needs to repeat the chest x-ray after completion of antibiotics. She has no smoking history. Differential Diagnosis Differential Diagnoses: The differential diagnosis associated with the presentation includes Please see the discussion above Admission/Observation Consideration of admission/observation: Escalation of care including admission/observation considered Please see the discussion above Lab Data MDM Lab Attestation statement: I reviewed the patient's lab results. Please see the discussion above 11/24/23 12:58 11/24/23 12:58 Labs: Lab Results 11/24/23 Range/Units 12:58 WBC 8.2 (4.8-10.8) X10*3/uL RBC 4.23 (4.20-5.50) X10*6/uL Hgb 12.5 (12.0-16.0) g/dl Hct 36.3 L (37.0-47.0) % MCV 85.8 (80.0-98.0) fL MCH 29.6 (27.0-33.0) pg MCHC 34.4 (31.0-35.0) g/dl RDW 13.7 (11.0-16.0) % Plt Count 281 (160-400) X10*3/uL MPV 8.8 L (9.4-12.3) fL Immature Gran % (Auto) 0.4 (0.0-0.4) % Neut % (Auto) 55.4 (45-73) % Lymph % (Auto) 34.3 (20-40) % [place] % (Auto) 7.9 (2-11) % Eos % (Auto) 1.6 (0-4) % Baso % (Auto) 0.4 (0-2) % Lymph # (Auto) 2.8 (1.2-4.9) X10*3/uL [place] # (Auto) 0.7 (0.1-1.2) X10*3/uL Eos # (Auto) 0.1 (0.0-0.4) X10*3/uL Baso # (Auto) 0.0 (0.0-0.2) X10*3/uL Abs Immat Gran (auto) 0.03 (0.00-0.03) X10*3/uL Absolute Neuts (auto) 4.6 (2.0-8.3) x10*3/uL Absolute Nucleated RBC 0.000 (0.0-0.012) X10*3/uL Nucleated RBC % (auto) 0.0 (0.0-0.2) /100WBC PT 11.0 L (11.1-13.3) SEC INR 0.9 (0.9-1.1) APTT 38.7 H (26.0-36.8) SEC Sodium 141 (135-145) mmol/L Potassium 3.9 (3.3-5.1) mmol/L Chloride 102 (96-108) mmol/L Carbon Dioxide 29 (22-29) mmol/L Anion Gap 14 (12-20) BUN 7 L (9-16) mg/dL Creatinine 0.83 (0.5-1.4) mg/dL Estim Creat Clear Calc 118.7 Estimated GFR > 60 Random Glucose 88 (60-115) mg/dL Calcium 9.2 (8.4-10.2) mg/dL Magnesium 1.8 (1.6-2.6) mg/dL Total Bilirubin 0.2 (0.0-1.0) mg/dL AST 21 (5-31) U/L ALT 20 (0-31) U/L Alkaline Phosphatase 102 (39-117) U/L Troponin I High Sens < 2.7 (<3.5-17.0) ng/L Total Protein 7.0 (6.5-8.0) g/dL Albumin 4.0 (3.5-5.0) g/dL Influenza Type A (PCR) NEGATIVE (Negative) Influenza Type B (PCR) NEGATIVE (Negative) RSV RNA Qual (PCR) NEGATIVE (Negative) SARS-CoV-2 RNA (RT-PCR) NEGATIVE (Negative) Independent Interpretation I performed an independent interpretation of an: EKG Interpretation: Normal sinus rhythm, HR-83, no STEMI, [place]/QRS/QTC are within normal limits. Radiology Impression Discussion of test interpretation with radiology: I have reviewed the radiologist's reading. Radiologist Impression: Please see the discussion above Chronic Conditions Fibromyalgia Discharge Plan Discharge Clinical Impression: Pneumonia Patient Disposition: Home, Self-Care Instructions: Pneumonia (ED) Additional Instructions: 1. Resume all home medications as prescribed. 2. Follow-up with your primary care doctor on Say morning. It is important that you follow-up with a chest x-ray after completion of antibiotics. Return to the emergency room for any worsening symptoms. Prescriptions: New amoxicillin-pot clavulanate 875-125 mg tablet 1 tab PO BID 5 Days Qty: 10 0RF No Action acetaminophen [Tylenol Extra Strength] 500 mg tablet 500 mg PO Q6H PRN (Reason: fever or pain) Qty: 14 0RF lidocaine [Lidoderm] 5 % adhesive patch,medicated 1 patch topical DAILY MDD remove after 12 hours PRN (Reason: pain) Qty: 30 0RF Rx Instructions: leave on most painful area for up to 12 hrs naproxen 500 mg tablet 500 mg PO BID PRN (Reason: pain) 10 Days Qty: 20 0RF cyclobenzaprine 5 mg tablet 5 mg PO Q8H PRN (Reason: pain (scale score 7-10)) 5 Days Qty: 14 0RF tramadol 50 mg tablet 50 mg PO Q8H PRN (Reason: pain, severe) Qty: 9 0RF acetaminophen [Tylenol Extra Strength] 500 mg tablet 500 mg PO Q6H PRN (Reason: fever or pain) Qty: 14 0RF lidocaine [Lidoderm] 5 % adhesive patch,medicated 1 patch topical DAILY MDD remove after 12 hours PRN (Reason: pain) Qty: 30 0RF Rx Instructions: leave on most painful area for up to 12 hrs naproxen 500 mg tablet 500 mg PO BID PRN (Reason: pain) 10 Days Qty: 20 0RF cyclobenzaprine 5 mg tablet 5 mg PO Q8H PRN (Reason: pain (scale score 7-10)) 5 Days Qty: 14 0RF cyclobenzaprine 10 mg tablet 10 mg PO TID PRN (Reason: muscle pain or spasm) Qty: 20 0RF prednisone 20 mg tablet 60 mg PO DAILY 5 Days Qty: 15 0RF oxycodone 5 mg tablet 5 mg PO Q4H PRN (Reason: pain) Qty: 14 0RF Rx Instructions: Patient may request partial fill; Partial Fill upon patient request. Print Language: Tajik
[2023-11-24 12:01] VITALS: BP 113/70; PULSE 83; RESP 16; TEMP 37.1; O2SAT 99; BMI 34.2
[2023-11-24 13:02] LABS: MANUAL DIFF FLAG NO
[2023-11-24 13:05] LABS: Basophils Percent Auto 0.4 % (0-2); Eosinophils Absolute Auto 0.1 X10*3/uL (0.0-0.4); Eosinophils Percent Auto 1.6 % (0-4); Hematocrit 36.3 % (37.0-47.0); Hemoglobin 12.5 g/dl (12.0-16.0); Imm Gran Abs Auto 0.03 X10*3/uL (0.00-0.03); Imm Gran Pct Auto 0.4 % (0.0-0.4); Lymphocytes Absolute Auto 2.8 X10*3/uL (1.2-4.9); Lymphocytes Percent Auto 34.3 % (20-40); Mean Corpuscular HGB Conc 34.4 g/dl (31.0-35.0); Mean Corpuscular Hemoglobin 29.6 pg (27.0-33.0); Mean Corpuscular Volume 85.8 fL (80.0-98.0); Mean Platelet Volume 8.8 fL (9.4-12.3); Monocytes Absolute Auto 0.7 X10*3/uL (0.1-1.2); Monocytes Percent Auto 7.9 % (2-11); Neutrophils Absolute Auto 4.6 x10*3/uL (2.0-8.3); Neutrophils Percent Auto 55.4 % (45-73); Platelet Count 281 X10*3/uL (160-400); Red Blood Count 4.23 X10*6/uL (4.20-5.50); Red Cell Distribution Width 13.7 % (11.0-16.0); White Blood Count 8.2 X10*3/uL (4.8-10.8)
[2023-11-24 13:09] LABS: INTERNATIONAL NORM RATIO 0.9 (0.9-1.1)
[2023-11-24 13:12] LABS: Partial Thromboplastin Time 38.7 SEC (26.0-36.8)
[2023-11-24 13:26] LABS: Alanine Aminotransferase 20 U/L (0-31); Alkaline Phosphatase 102 U/L (39-117); Anion Gap 14 (12-20); Aspartate Amino Transferase 21 U/L (5-31); Bilirubin Total 0.2 mg/dL (0.0-1.0); Blood Urea Nitrogen 7 mg/dL (9-16); Calcium 9.2 mg/dL (8.4-10.2); Carbon Dioxide 29 mmol/L (22-29); Chloride 102 mmol/L (96-108); Creatinine Clr Calc Pharmacy 118.7; Estimated Glomerular Filt Rate > 60; Glucose Random 88 mg/dL (60-115); Magnesium 1.8 mg/dL (1.6-2.6); Potassium 3.9 mmol/L (3.3-5.1); Sodium 141 mmol/L (135-145)
[2023-11-24 13:39] LABS: Troponin-I High Sensitivity < 2.7 ng/L (<3.5-17.0)
[2023-11-24 13:41] LABS: Influenza A PCR NEGATIVE (Negative); Influenza B PCR NEGATIVE (Negative); Resp Syncy Virus RNA Qual PCR NEGATIVE (Negative); SARS COV2 PCR INHOUSE NEGATIVE (Negative)
[2023-11-24 15:41] LABS: Appearance Urine Clear; Color Urine Yellow; Glucose Urine UA Negative (Negative); Leukocyte Esterase Urine Negative (Negative); Nitrite Urine Negative (Negative); Urine Blood Negative (Negative); Urine Ketones Negative (Negative); Urine Protein Negative (Neg-Trace)
[2023-11-24] MEDS: Acetaminophen 325 MG TABLET 975 MG PO (15:44)
[2023-11-24] MEDS: Ibuprofen 400 MG TABLET PO (15:44)
[2023-11-24] MEDS: Amoxicillin/Potassium Clav 875 MG TABLET PO (15:44)
[2023-11-24 15:47] VITALS: BP 130/87; PULSE 82; RESP 18; TEMP 36.8; O2SAT 100
== END 2023-11-24 15:53 | disposition home or self-care (01) ==
PROVIDERS: Physician Assistant Medical; Emergency Provider Student in an Organized Health Care Education/Training Program
DX: J18.9 Pneumonia, unspecified organism (principal)
CPT/HCPCS: 0241U; 71046; 80053; 81003; 83735; 84484; 85025; 85610; 85730; 93005; 99283; 99284

== ENCOUNTER → 2023-11-24 11:41 | Outpatient (BNV) | payer OTHER, SELFPAY | PROVIDERS: Visit Provider Internal Medicine Cardiovascular Disease | DX: R94.31 Abnormal electrocardiogram [ECG] [EKG] (principal) | CPT/HCPCS: 93010 ==

== ENCOUNTER 2024-03-19 15:13 | Emergency (ER) | payer OTHER, SELFPAY ==
--- NOTE | ~2024-03-19 | XR_ITS ---
EXAMINATION: XR CHEST CLINICAL INFORMATION: Chest pain. COMPARISON: Chest x-ray November 24, 2023 TECHNIQUE: 2 views of the chest were obtained. FINDINGS: No significant abnormality is noted involving the heart, lungs, mediastinum, bony thorax or soft tissues. XR/XR chest 2V IMPRESSION: Unremarkable examination. Electronically signed by: Cortez Rodgers MD 03/19/2024 04:17 PM EDT RP
--- NOTE | 2024-03-19 15:15 | ECG_ITS ---
Test Reason : chest pain Blood Pressure : / mmHG Vent. Rate : 075 BPM Atrial Rate : 075 BPM P-R Int : 158 ms QRS Dur : 082 ms QT Int : 414 ms P-R-T Axes : 041 -28 034 degrees QTc Int : 462 ms Normal sinus rhythm Low voltage QRS Borderline ECG When compared with ECG of 24-NOV-2023 11:44, No significant change was found Referred By: Blanca Conway Electronically Signed By:CECILIO FELDMAN
[2024-03-19 15:27] VITALS: BP 115/69; PULSE 75; RESP 16; TEMP 36.2; O2SAT 99; BMI 37.7
--- NOTE | 2024-03-19 15:31 | ED_ITS ---
HPI - General Adult General Chief complaint: Chest Pain Stated complaint: chest pain vomiting Related Data Previous Rx's ?Medication ?Instructions ?Recorded acetaminophen 500 mg tablet 500 mg PO Q6H PRN fever or pain 07/17/22 (Tylenol Extra Strength) #14 tabs cyclobenzaprine 5 mg tablet 5 mg PO Q8H PRN pain (scale score 07/17/22 7-10) 5 days #14 tabs lidocaine 5 % topical patch 1 patch topical DAILY PRN pain #30 07/17/22 (Lidoderm) ea naproxen 500 mg tablet 500 mg PO BID PRN pain 10 days #20 07/17/22 tabs acetaminophen 500 mg tablet 500 mg PO Q6H PRN fever or pain 12/12/22 (Tylenol Extra Strength) #14 tabs cyclobenzaprine 5 mg tablet 5 mg PO Q8H PRN pain (scale score 12/12/22 7-10) 5 days #14 tabs lidocaine 5 % topical patch 1 patch topical DAILY PRN pain #30 12/12/22 (Lidoderm) ea naproxen 500 mg tablet 500 mg PO BID PRN pain 10 days #20 12/12/22 tabs tramadol 50 mg tablet 50 mg PO Q8H PRN pain, severe #9 12/12/22 tabs cyclobenzaprine 10 mg tablet 10 mg PO TID PRN muscle pain or 12/25/22 spasm #20 tabs oxycodone 5 mg tablet 5 mg PO Q4H PRN pain #14 tabs 12/25/22 prednisone 20 mg tablet 60 mg (3 x 20 mg) PO DAILY 5 days 12/25/22 #15 tabs amoxicillin 875 mg-potassium 1 tab PO BID 5 days #10 tabs 11/24/23 clavulanate 125 mg tablet Allergies Allergy/AdvReac Type Severity Reaction Status Date / Time No Known Allergies Allergy Verified 03/19/24 15:29 COUNTS INCLUDE 234 BEDS AT THE [facility] Social History Social History Advance Directives: No Advance Directives Information Provided: No Do you have a plan to hurt others: No Plan Physical Exam ED Vital Signs: BMI result Body Mass Index 37.7 Course Course Course Narrative: This is an RME: Additional HPI, ROS, PE not included below will be deferred to primary provider. RME assessment and note performed by: Blanca Conway PA-C This is a [id number]-speaking female, with a hx of fibromyalgia, who presents to the ER with complaint of CP, nausea and vomiting. No shortness of breath Plan: Labs, EKG, chest x-ray, further ER evaluation needed. Reevaluation(s) Reevaluation #1: Patient left without completing treatment. Medical Decision Making Lab Data 03/19/24 16:08 03/19/24 16:08 Labs: Lab Results 03/19/24 Range/Units 16:08 WBC 8.6 (4.8-10.8) X10*3/uL RBC 4.42 (4.20-5.50) X10*6/uL Hgb 12.5 (12.0-16.0) g/dl Hct 37.4 (37.0-47.0) % MCV 84.6 (80.0-98.0) fL MCH 28.3 (27.0-33.0) pg MCHC 33.4 (31.0-35.0) g/dl RDW 13.0 (11.0-16.0) % Plt Count 313 (160-400) X10*3/uL MPV 9.2 L (9.4-12.3) fL Immature Gran % (Auto) 0.3 (0.0-0.4) % Neut % (Auto) 68.1 (45-73) % Lymph % (Auto) 23.5 (20-40) % [place] % (Auto) 6.6 (2-11) % Eos % (Auto) 1.3 (0-4) % Baso % (Auto) 0.2 (0-2) % Lymph # (Auto) 2.0 (1.2-4.9) X10*3/uL [place] # (Auto) 0.6 (0.1-1.2) X10*3/uL Eos # (Auto) 0.1 (0.0-0.4) X10*3/uL Baso # (Auto) 0.0 (0.0-0.2) X10*3/uL Abs Immat Gran (auto) 0.03 (0.00-0.03) X10*3/uL Absolute Neuts (auto) 5.9 (2.0-8.3) x10*3/uL Absolute Nucleated RBC 0.000 (0.0-0.012) X10*3/uL Nucleated RBC % (auto) 0.0 (0.0-0.2) /100WBC PT 10.8 L (11.1-13.3) SEC INR 0.9 (0.9-1.1) Sodium 141 (135-145) mmol/L Potassium 3.5 (3.3-5.1) mmol/L Chloride 105 (96-108) mmol/L Carbon Dioxide 27 (22-29) mmol/L Anion Gap 13 (12-20) BUN 9 (9-16) mg/dL Creatinine 0.76 (0.5-1.4) mg/dL Estim Creat Clear Calc 120.3 Estimated GFR > 60 Random Glucose 124 H (60-115) mg/dL Calcium 9.2 (8.4-10.2) mg/dL Magnesium 1.9 (1.6-2.6) mg/dL Total Bilirubin 0.2 (0.0-1.0) mg/dL Direct Bilirubin < 0.2 (0.0-0.5) mg/dL AST 18 (5-31) U/L ALT 21 (0-31) U/L Alkaline Phosphatase 109 (39-117) U/L Troponin I High Sens < 2.7 (<3.5-17.0) ng/L Total Protein 7.1 (6.5-8.0) g/dL Albumin 4.1 (3.5-5.0) g/dL Urine Color Yellow Urine Appearance Clear Urine pH 5.5 (5.0-9.0) Ur Specific [place] 1.020 (1.005-1.025) Urine Protein Negative (Neg-Trace) mg/dL Urine Glucose (UA) Negative (Negative) mg/dL Urine Ketones Negative (Negative) mg/dL Urine Blood Large (3+) H (Negative) Urine Nitrite Negative (Negative) Ur Leukocyte Esterase Negative (Negative) Urine RBC >20 H (0-2) /HPF Urine WBC 0-5 (0-5) /HPF Ur Squamous Epith Cells 0-2 (0-2) /HPF Urine Bacteria None Seen (None Seen) Hyaline Casts 0-2 (0-2) /LPF Influenza Type A (PCR) NEGATIVE (Negative) Influenza Type B (PCR) NEGATIVE (Negative) RSV RNA Qual (PCR) NEGATIVE (Negative) SARS-CoV-2 RNA (RT-PCR) NEGATIVE (Negative) Discharge Plan Discharge Clinical Impression: Chest pain Patient Disposition: Left W/O Completing Treatment Prescriptions: No Action acetaminophen [Tylenol Extra Strength] 500 mg tablet 500 mg PO Q6H PRN (Reason: fever or pain) Qty: 14 0RF lidocaine [Lidoderm] 5 % adhesive patch,medicated 1 patch topical DAILY MDD remove after 12 hours PRN (Reason: pain) Qty: 30 0RF Rx Instructions: leave on most painful area for up to 12 hrs naproxen 500 mg tablet 500 mg PO BID PRN (Reason: pain) 10 Days Qty: 20 0RF cyclobenzaprine 5 mg tablet 5 mg PO Q8H PRN (Reason: pain (scale score 7-10)) 5 Days Qty: 14 0RF amoxicillin-pot clavulanate 875-125 mg tablet 1 tab PO BID 5 Days Qty: 10 0RF tramadol 50 mg tablet 50 mg PO Q8H PRN (Reason: pain, severe) Qty: 9 0RF acetaminophen [Tylenol Extra Strength] 500 mg tablet 500 mg PO Q6H PRN (Reason: fever or pain) Qty: 14 0RF lidocaine [Lidoderm] 5 % adhesive patch,medicated 1 patch topical DAILY MDD remove after 12 hours PRN (Reason: pain) Qty: 30 0RF Rx Instructions: leave on most painful area for up to 12 hrs naproxen 500 mg tablet 500 mg PO BID PRN (Reason: pain) 10 Days Qty: 20 0RF cyclobenzaprine 5 mg tablet 5 mg PO Q8H PRN (Reason: pain (scale score 7-10)) 5 Days Qty: 14 0RF cyclobenzaprine 10 mg tablet 10 mg PO TID PRN (Reason: muscle pain or spasm) Qty: 20 0RF prednisone 20 mg tablet 60 mg PO DAILY 5 Days Qty: 15 0RF oxycodone 5 mg tablet 5 mg PO Q4H PRN (Reason: pain) Qty: 14 0RF Rx Instructions: Patient may request partial fill; Partial Fill upon patient request. Discharge Date/Time: 03/19/24 21:20
[2024-03-19 16:17] LABS: MANUAL DIFF FLAG NO
[2024-03-19 16:20] LABS: Basophils Percent Auto 0.2 % (0-2); Eosinophils Absolute Auto 0.1 X10*3/uL (0.0-0.4); Eosinophils Percent Auto 1.3 % (0-4); Hematocrit 37.4 % (37.0-47.0); Hemoglobin 12.5 g/dl (12.0-16.0); Imm Gran Abs Auto 0.03 X10*3/uL (0.00-0.03); Imm Gran Pct Auto 0.3 % (0.0-0.4); Lymphocytes Percent Auto 23.5 % (20-40); Mean Corpuscular HGB Conc 33.4 g/dl (31.0-35.0); Mean Corpuscular Hemoglobin 28.3 pg (27.0-33.0); Mean Corpuscular Volume 84.6 fL (80.0-98.0); Mean Platelet Volume 9.2 fL (9.4-12.3); Monocytes Absolute Auto 0.6 X10*3/uL (0.1-1.2); Monocytes Percent Auto 6.6 % (2-11); Neutrophils Absolute Auto 5.9 x10*3/uL (2.0-8.3); Neutrophils Percent Auto 68.1 % (45-73); Platelet Count 313 X10*3/uL (160-400); Red Blood Count 4.42 X10*6/uL (4.20-5.50); White Blood Count 8.6 X10*3/uL (4.8-10.8)
[2024-03-19 16:22] LABS: Appearance Urine Clear; Color Urine Yellow; Glucose Urine UA Negative (Negative); Leukocyte Esterase Urine Negative (Negative); Nitrite Urine Negative (Negative); PH 5.5 (5.0-9.0); UMIC TRIGGER UACC YES; Urine Blood Large (3+) (Negative); Urine Ketones Negative (Negative); Urine Protein Negative (Neg-Trace)
[2024-03-19 16:27] LABS: Bacteria Urine None Seen (None Seen); Hyaline Casts Urine 0-2 /LPF (0-2); RBC Urine >20 /HPF (0-2); Squamous Epithelial Cell Urine 0-2 /HPF (0-2); WBC Urine 0-5 /HPF (0-5)
[2024-03-19 16:33] LABS: INTERNATIONAL NORM RATIO 0.9 (0.9-1.1); Prothrombin Time 10.8 SEC (11.1-13.3)
[2024-03-19 16:54] LABS: Troponin-I High Sensitivity < 2.7 ng/L (<3.5-17.0)
[2024-03-19 17:00] LABS: Alanine Aminotransferase 21 U/L (0-31); Albumin Level 4.1 g/dL (3.5-5.0); Alkaline Phosphatase 109 U/L (39-117); Anion Gap 13 (12-20); Aspartate Amino Transferase 18 U/L (5-31); Bilirubin Direct < 0.2 mg/dL (0.0-0.5); Bilirubin Total 0.2 mg/dL (0.0-1.0); Blood Urea Nitrogen 9 mg/dL (9-16); Calcium 9.2 mg/dL (8.4-10.2); Carbon Dioxide 27 mmol/L (22-29); Chloride 105 mmol/L (96-108); Creatinine Clr Calc Pharmacy 120.3; Estimated Glomerular Filt Rate > 60; Glucose Random 124 mg/dL (60-115); Magnesium 1.9 mg/dL (1.6-2.6); Potassium 3.5 mmol/L (3.3-5.1); Sodium 141 mmol/L (135-145); Total Protein 7.1 g/dL (6.5-8.0)
[2024-03-19 17:02] LABS: Influenza A PCR NEGATIVE (Negative); Influenza B PCR NEGATIVE (Negative); Resp Syncy Virus RNA Qual PCR NEGATIVE (Negative); SARS COV2 PCR INHOUSE NEGATIVE (Negative)
--- NOTE | 2024-03-19 21:20 | PC.NURSE ---
No answer in the WR @ 2100.
== END 2024-03-19 21:20 | disposition left against medical advice (07) ==
PROVIDERS: Physician Assistant Medical; Emergency Provider Emergency Medicine
DX: R07.89 Other chest pain (principal); R11.2 Nausea with vomiting, unspecified; Z79.899 Other long term (current) drug therapy; Z03.818 Encounter for observation for suspected exposure to other biological agents ruled out
CPT/HCPCS: 0241U; 71046; 80048; 80076; 81001; 83735; 84484; 85025; 85610; 93005; 99283